=== PATIENT | female | born 1960 | race Caucasian/White ===

== ENCOUNTER → 2018-01-01 | Outpatient (CLI) | payer OTHER ==
--- NOTE | 2018-01-04 13:34 | MR ---
EXAMINATION TYPE: MR cervical spine wo con DATE OF EXAM: 01/01/2018 COMPARISON: NONE HISTORY: Neck pain, headaches, rt arm weakness TECHNIQUE: Multiplanar, multisequence images of the cervical spine were acquired. FINDINGS: There is very mild retrolisthesis of C5 with respect to C4. Multilevel degenerative endplate changes are seen. Small anterior osteophytes are present. Uncovertebral hypertrophy and facet arthropathy are also seen at multiple levels. Spinal cord remains of normal signal throughout. Visualized portions o f the posterior fossa are grossly unremarkable. There is straightening of the usual cervical lordosis . C2-C3: There is a small left paracentral disc osteophyte complex without significant spinal canal halima nosis. Left neural foramen is patent. Facet arthropathy and uncovertebral hypertrophy creating modera te right neural foraminal narrowing. C3-C4: There is uncovertebral hypertrophy and a small central disc osteophyte complex in combination with facet arthropathy that create moderate left and mild right neural foraminal narrowing. No spinal canal stenosis. C4-C5: There is uncovertebral hypertrophy and facet arthropathy creating moderate left neural foramin al and [id number] right neural foraminal narrowing. Small central disc ossify complex is seen w ithout significant spinal canal stenosis. C5-C6: There is a very small right foraminal disc herniation in combination with uncovertebral hypert rophy and facet arthropathy creates moderate to severe right neural foraminal narrowing and mild left neural foraminal narrowing as well as mild spinal canal stenosis as there is narrowing of the subara chnoid space ventrally. C6-C7: There is ligamentum flavum buckling and a small right paracentral disc herniation with a broad -based disc bulge, uncovertebral hypertrophy, and facet arthropathy. There is resultant moderate spin al canal stenosis at this level as well as bilateral moderate to severe neural foraminal narrowing. C7-T1: No evidence for degenerative disc disease. No disc bulge/herniation or protrusion. No Canal stenosis. Foramina are patent bilaterally. IMPRESSION: 1. Right paracentral disc herniation at C6-C7 in combination with degenerative changes result in mode rate spinal canal stenosis and bilateral moderate to severe neuroforaminal narrowing. 2. Very small right foraminal disc herniation at C5-C6 that in combination with degenerative changes create severe right neural foraminal narrowing and mild left neural foraminal narrowing as well as mi ld spinal canal stenosis. 3. Multilevel degenerative disc disease creating variable degrees of neural foraminal narrowing as de scribed above. 4. Mild retrolisthesis of C5 with respect to C4. 5. Straightening of usual cervical lordosis that may relate to muscular sprain or spasm.
== END | disposition home or self-care (01) ==
LOC: RADMRIMAIN 16:20
PROVIDERS: ATTEND Family Medicine
DX: M48.02 Spinal stenosis, cervical region (principal); M50.322 Other cervical disc degeneration at C5-C6 level; M99.71 Connective tissue and disc stenosis of intervertebral foramina of cervical region; M47.812 Spondylosis without myelopathy or radiculopathy, cervical region; M50.30 Other cervical disc degeneration, unspecified cervical region; M43.12 Spondylolisthesis, cervical region
CPT/HCPCS: 72141

== ENCOUNTER → 2020-11-14 | Outpatient (CLI) | payer OTHER ==
--- NOTE | 2020-11-14 10:42 | XR ---
EXAMINATION TYPE: XR cervical spine comp DATE OF EXAM: 11/14/2020 COMPARISON: 11/04/2017 HISTORY: 60-year-old female M54.2, cervicalgia. Surgery 2 years ago. TECHNIQUE: 5 views FINDINGS: No odontoid view. Post surgical changes of C5-C7 ACDF. Mild endplate spondylosis above the fusion at C4-C5. Grade 1 anterolisthesis at C4-C5 is unchanged pleural effusion is new. There may be moderate bony neuroforaminal narrowing on the left at C4-C5, C5-C6, and C6-C7. Mild to moderate bony neural foraminal narrowing on the right at C3-C4 and C6-C7. The degree of obliq uity limits assessment. Multilevel facet and uncovertebral joint arthropathy. IMPRESSION: 1. Interval C5-C7 ACDF. The degenerative grade 1 anterolisthesis at C4-C5 is unchanged though the fus ion is new. 2. Multilevel facet and uncovertebral joint arthropathy. 3. The degree of obliquity limits assessment of the neuroforamen on either side. Suspect moderate bon y neuroforaminal narrowing on the left as outlined above and at least mild to moderate on the right.
== END ==
LOC: RADXRYALE 10:14
PROVIDERS: ATTEND Physician Assistant Medical
DX: M43.12 Spondylolisthesis, cervical region (principal); M47.812 Spondylosis without myelopathy or radiculopathy, cervical region
CPT/HCPCS: 72050